=== PATIENT | female | born 1985 | race Caucasian/White ===

== ENCOUNTER 2019-08-23 15:09 | Emergency (ER) | payer OTHER ==
[2019-08-23 15:16] VITALS: BP 128/53
--- NOTE | 2019-08-23 15:19 | ED Physician Documentation ---
PD HPI LOWER EXT INJURY - Stated complaint Stated Complaint: RT FOOT INJURY - Chief complaint Chief Complaint: Ext Problem - History obtained from History obtained from: Patient - History of Present Illness PD HPI LOW EXT INJURY LOCATION: Right, Foot Type of injury: Twist Where injury occurred: Work Timing - onset: Last night Timing - details: Abrupt onset, Still present Worsened by: Moving, Palpating, Other (weight bearing) Associated symptoms: No: Weakness, Numbness, Swelling Similar symptoms before: Has not had sx before Recently seen: Not recently seen Review of Systems Skin: denies: Abrasion (s), Laceration (s) Musculoskeletal: denies: Back pain Neurologic: denies: Focal weakness, Numbness PD PAST MEDICAL HISTORY - Past Medical History Past Medical History: No Endocrine/Autoimmune: HyPOthyroidism Musculoskeletal: None - Past Surgical History Past Surgical History: No - Present Medications Home Medications: Ambulatory Orders Medication Instructions Recorded Confirmed Iud 08/23/19 Levothyroxine [Synthroid] 75 mcg PO QDAC 08/23/19 08/23/19 - Allergies Allergies/Adverse Reactions: Allergies Allergy/AdvReac Type Severity Reaction Status Date / Time No Known Drug Allergies Allergy Verified 08/23/19 15:16 PD ED PE NORMAL - Vitals Vital signs reviewed: Yes - General General: Alert and oriented X 3, No acute distress, Well developed/nourished - Derm Derm: Normal color, Warm and dry - Extremities Extremities: Other (right table tender sludge along medial arch without deformity nor swelling. Not tender at ankle. Lateral foot not tender. No noted skin lesions. ) - Neuro Neuro: No motor deficit, No sensory deficit Results - Vitals Vitals: Oxygen O2 Source Room air - Rads (name of study) foot xray Radiology: Prelim report reviewed (no fractures), See rad report PD MEDICAL DECISION MAKING - ED course Complexity details: reviewed results (no fractures nor dislocations), considered differential, d/w patient Departure - Departure Disposition: 01 Home, Self Care Clinical Impression: Foot sprain Qualifiers: Encounter type: initial encounter Laterality: right Qualified Code(s): S93.601A - Unspecified sprain of right foot, initial encounter Condition: Stable Record reviewed to determine appropriate education?: Yes Instructions: ED Sprain Foot Comments: There are no fractures seen on x-ray. You can still have considerable pain in the foot in the arch because of swelling from a sprain or bruising. There is not much room for expansion in that area. Reduce motion through the arch of the foot with the firm soled shoe for the next several days to week. Nonweightbearing initially and progress weightbearing as tolerated so crutches as needed. Use some anti-inflammatory such as ibuprofen 3 times a day and add Tylenol if needed. Elevate ice and rest your foot often tonight and tomorrow. I would anticipate improvement in the injury and therefore the pain over the next several days or so and resolution within about a week. Discharge Date/Time: 08/23/19 16:14
--- NOTE | 2019-08-23 15:45 | XRAY Report ---
Reason: Trauma Procedure Date: 08/23/2019 Accession Number: [id number] / [id number] Procedure: XR - Foot 3 View RT CPT Code: Final Report FULL RESULT: EXAM: RIGHT FOOT RADIOGRAPHY EXAM DATE: 08/23/2019 03:18 PM. CLINICAL HISTORY: Trauma. COMPARISON: None. TECHNIQUE: 3 views. FINDINGS: Bones: Normal. No fractures or bone lesions. Joints: Normal. No subluxations. Soft Tissues: Normal. No soft tissue swelling. Tiny plantar calcaneal bone spur. IMPRESSION: No acute findings. RADIA
[2019-08-23] MEDS ORDERED: ACETAMINOPHEN 325 MG TABLET PO STA (15:50)
== END 2019-08-23 16:14 | disposition home or self-care (01) ==
LOC: ED 15:09
DX: S93.601A Unspecified sprain of right foot, initial encounter (principal); W07.XXXA Fall from chair, initial encounter; X50.1XXA Overexertion from prolonged static or awkward postures, initial encounter; Y99.0 Civilian activity done for income or pay
CPT/HCPCS: 73630; 99282; 99283; A9270

== ENCOUNTER 2020-08-30 19:52 | Emergency (ER) | payer OTHER ==
--- NOTE | 2020-08-30 20:48 | XRAY Report ---
PROCEDURE: Hand 3 View RT INDICATIONS: Trauma TECHNIQUE: 3 views of the hand(s) acquired. COMPARISON: X-ray right hand report, 12/24/2010 FINDINGS: Bones: No fractures or dislocations. No suspicious bony lesions. Soft tissues: No suspicious soft tissue calcifications. IMPRESSION: No fracture or dislocation. If clinical symptoms persist, a repeat examination in 7-10 days or advanc ed imaging such as CT or MRI may be helpful. Reviewed by: Taurus Whittington MD on 08/30/2020 8:47 PM PDT Approved by: Taurus Whittington MD on 08/30/2020 8:47 PM PDT Station ID: [id number]
[2020-08-30] MEDS ORDERED: oxyCODONE 5 MG TABLET PO STA (21:08)
[2020-08-30] MEDS ORDERED: IBUPROFEN 800 MG TABLET PO STA (21:08)
--- NOTE | 2020-08-30 21:09 | ED Physician Documentation ---
PD HPI UPPER EXT INJURY - Stated complaint Stated Complaint: GLF/RT SIDE PX - Chief complaint Chief Complaint: Trauma Ext - History obtained from History obtained from: Patient - History of Present Illness Location: Right - Additonal information Additional information: [place] and hit her right hand on the ground, concrete. She also has minor injuries of the knees and right elbow. She is able to walk and bear weight. As time goes by the hand pain though is more and more severe. 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 HEENT: Other - Present Medications Home Medications: Ambulatory Orders Medication Instructions Recorded Confirmed Iud 08/23/19 Levothyroxine [Synthroid] 75 mcg PO QDAC 08/23/19 08/23/19 Oxycodone HCl/Acetaminophen 1 - 2 each PO Q6H PRN #7 tablet 08/30/20 [Percocet 5-325 mg Tablet] - Allergies Allergies/Adverse Reactions: Allergies Allergy/AdvReac Type Severity Reaction Status Date / Time No Known Drug Allergies Allergy Verified 08/30/20 19:55 - Social History Does the pt smoke?: No Smoking Status: Never smoker Does the pt drink ETOH?: Yes Does the pt have substance abuse?: No - Immunizations Immunizations are current?: Yes PD ED PE NORMAL - Vitals Vital signs reviewed: Yes - General General: Alert and oriented X 3 (She is tearful. Alert and oriented x3.) - Neck Neck: Supple, no meningeal sign, No bony TTP - Extremities Extremities: Other (Right elbow and both knees are nontender. I am not able to elicit any tenderness of the hand but has profound pain with any radial deviation at the wrist.) - Neuro Neuro: Alert and oriented X 3, Normal speech Results - Vitals Vitals: Vital Signs - 24 hr 08/30/20 19:55 Temperature 36.5 C Heart Rate 88 Respiratory 16 Rate Blood Pressure 133/92 H O2 Saturation 100 Oxygen O2 Source Room air - Rads (name of study) R hand XR Radiology: EMP read contemporaneously (neg) Procedures - Splint (location) R hand Splint applied by: Physician Type of splint: Fiberglass, Short arm, Ulnar gutter Other: Patient tolerated well, No complications, Neurovascular intact PD MEDICAL DECISION MAKING - ED course ED course: I am prescribing a short course of short-acting opioid pain medication for this patient. I have reviewed the patients FLOOR WAXER and no concerning findings were noted. I have discussed that the opioids are for short term therapy only, and will not be refilled from the ED. Departure - Departure Disposition: 01 Home, Self Care Clinical Impression: Sprain of hand, right Qualifiers: Encounter type: initial encounter Qualified Code(s): S63.91XA - Sprain of unspecified part of right wrist and hand, initial encounter Condition: Good Record reviewed to determine appropriate education?: Yes Instructions: ED Sprain Hand Prescriptions: Oxycodone HCl/Acetaminophen [Percocet 5-325 mg Tablet] 1 - 2 each PO Q6H PRN #7 tablet PRN Reason: pain Comments: Ibuprofen when pain is mild. Ice and elevate. If not better in a week [place] Return for new or worsening symptoms. I am prescribing a short course of narcotic pain medication for you. These are potentially dangerous and addictive medications that should be used carefully. These medications may constipate you. Take an [id number] stool softener (docusate) twice daily with plenty of water while taking these medications. If you go 24 hours without a bowel movement, take [id number] miralax, per package instructions. Do not drink or drive while taking these medications. If you received narcotic or sedating medications while in the emergency department, do not drive for 24 hours. Store this medication in a safe, secure place and out of reach of children. It is a violation of federal law to give or sell this medication to another person or to use in a manner other than prescribed. The ED will not refill narcotic prescriptions, including prescriptions lost or stolen. To dispose of unwanted medications: 1. [facility] [address] in [place] has a medication drop box. They accept prescription medications (in pill form) Sunday through Sunday 9:00 a.m. to 5:00 p.m. 2. [facility] accepts prescription medications (in pill form only) for disposal year round. Call for more informati on. 3. Contact the [facility] for the next [facility] sponsored prescription drug collection event. , [phone], or [phone]; Note that many narcotic pain relievers also contain Tylenol/acetaminophen. Please ensure that your total dose of acetaminophen from all sources does not exceed 3 g (3000 mg) per day.
[2020-08-30] MEDS ORDERED: oxyCODONE/ACET 5/325 Prepack 4 PO STA (21:37)
[2020-08-30 21:46] VITALS: BP 143/105
== END 2020-08-30 21:47 | disposition home or self-care (01) ==
LOC: ED 19:52
DX: S63.91XA Sprain of unspecified part of right wrist and hand, initial encounter (principal); W01.0XXA Fall on same level from slipping, tripping and stumbling without subsequent striking against object, initial encounter; Y93.01 Activity, walking, marching and hiking; Y92.830 Public park as the place of occurrence of the external cause
CPT/HCPCS: 29125; 73130; 99283; A9270